=== PATIENT | female | born 1940 | race Caucasian/White ===

== ENCOUNTER 2024-05-08 09:41 | Observation (INO) ==
[2024-05-08 10:46] LABS: ABS Lymphocytes 0.6 10^3/uL (1.0-4.8); ABS Monocytes 0.6 10^3/uL (0.0-0.9); ABS Neutrophils 2.7 10^3/uL (1.5-7.6); Eosinophil % 0.5 %; Hematocrit 35.6 % (35-45); Hemoglobin 12.1 g/dL (11.5-14.3); Lymphocyte % 14.6 %; Mean Corpuscular Hemoglobin 30.7 pg (27-33); Mean Corpuscular Hgb Conc 33.9 g/dL (31-36); Mean Corpuscular Volume 90.5 fL (80-97); Mean Platelet Volume 6.8 fL (7.5-11.2); Nucleated Red Blood Cells % 0.1 %/100WBC (0.0-0.8); Platelet Count 200 10^3/uL (150-450); Red Blood Count 3.93 10^6/uL (3.63-4.92); Red Cell Distribution Width 14.4 % (12-17); White Blood Count 3.9 10^3/uL (3.8-11.8)
[2024-05-08] MEDS: Ondansetron 4 mg VIAL 2 MG/ML 2 ml VIAL IV ONE (11:27)
[2024-05-08 11:34] LABS: Creatinine, Serum 1.91 mg/dL (0.51-0.95); Potassium 4.9 mmol/L (3.5-5.0); eGFR CKD-EPI 25.9 (>60)
[2024-05-08 12:05] LABS: Urine Appearance Clear; Urine Bilirubin Negative (Negative); Urine Blood Negative (Negative); Urine Color Light-Yellow; Urine Glucose Negative (Negative); Urine Ketones Trace (Negative); Urine Nitrite Negative (Negative); Urine Protein Trace (Negative); Urine Specific Gravity 1.014 (1.002-1.030); Urine Urobilinogen Negative (Negative)
[2024-05-08 12:06] LABS: Osmolality Serum 261 mOsm/kg (275-295)
[2024-05-08 13:22] LABS: Urine Osmo 397 mOsm/kg (150-1150)
[2024-05-08] MEDS ORDERED: Ondansetron 4 mg VIAL 2 MG/ML 2 ml VIAL IV PRN (14:34)
[2024-05-08 19:23] LABS: Calcium 9.4 mg/dL (8.6-10.3); Creatinine, Serum 1.67 mg/dL (0.51-0.95); Potassium 4.6 mmol/L (3.5-5.0); eGFR CKD-EPI 30.4 (>60)
[2024-05-08] MEDS: NS 0.9% 1000 ml BAG 1,000 ML IV SCH (20:00)
[2024-05-09 02:46] LABS: ABS Eosinophils 0.1 10^3/uL (0.0-0.5); ABS Lymphocytes 0.8 10^3/uL (1.0-4.8); ABS Monocytes 0.4 10^3/uL (0.0-0.9); ABS Neutrophils 1.9 10^3/uL (1.5-7.6); Eosinophil % 3.3 %; Hematocrit 32.6 % (35-45); Hemoglobin 11.3 g/dL (11.5-14.3); Lymphocyte % 23.8 %; Mean Corpuscular Hemoglobin 31.4 pg (27-33); Mean Corpuscular Hgb Conc 34.7 g/dL (31-36); Mean Corpuscular Volume 90.3 fL (80-97); Mean Platelet Volume 7.1 fL (7.5-11.2); Platelet Count 171 10^3/uL (150-450); Red Cell Distribution Width 14.9 % (12-17); White Blood Count 3.2 10^3/uL (3.8-11.8)
[2024-05-09 02:55] LABS: Calcium 8.9 mg/dL (8.6-10.3); Creatinine, Serum 1.43 mg/dL (0.51-0.95); Magnesium 1.6 mg/dL (1.9-2.7); eGFR CKD-EPI 36.6 (>60)
[2024-05-09] MEDS: Magnesium Sulf 4 GM/100 ML IV 4,000 MG/100 ML BAG IVPB ONE (08:02)
[2024-05-09 10:57] LABS: Calcium 9.4 mg/dL (8.6-10.3); Creatinine, Serum 1.21 mg/dL (0.51-0.95); eGFR CKD-EPI 44.7 (>60)
[2024-05-09] MEDS: NS 0.9% 500 ml BAG 500 ML IV SCH (12:37)
[2024-05-09] MEDS: Enoxaparin 40 MG/0.4 ML SYR SUBCUT SCH (13:21)
[2024-05-09 20:55] LABS: Calcium 8.7 mg/dL (8.6-10.3); Creatinine, Serum 1.11 mg/dL (0.51-0.95); Potassium 4.5 mmol/L (3.5-5.0); eGFR CKD-EPI 49.6 (>60)
[2024-05-09] MEDS: Senna TAB 8.6 mg TAB PO PRN (21:25)
[2024-05-10 07:09] LABS: ABS Eosinophils 0.2 10^3/uL (0.0-0.5); ABS Monocytes 0.4 10^3/uL (0.0-0.9); ABS Neutrophils 1.7 10^3/uL (1.5-7.6); ABS Nucleated RBC 0.01 10^3/ul; Eosinophil % 4.8 %; Hematocrit 34.9 % (35-45); Hemoglobin 12.1 g/dL (11.5-14.3); Lymphocyte % 30.3 %; Mean Corpuscular Hemoglobin 31.5 pg (27-33); Mean Corpuscular Hgb Conc 34.6 g/dL (31-36); Mean Platelet Volume 7.1 fL (7.5-11.2); Nucleated Red Blood Cells % 0.2 %/100WBC (0.0-0.8); Platelet Count 167 10^3/uL (150-450); Red Blood Count 3.83 10^6/uL (3.63-4.92); Red Cell Distribution Width 14.7 % (12-17); White Blood Count 3.3 10^3/uL (3.8-11.8)
[2024-05-10 08:04] LABS: Calcium 9.1 mg/dL (8.6-10.3); Creatinine, Serum 1.04 mg/dL (0.51-0.95); Phosphorus 2.9 mg/dL (2.5-5.0); Potassium 4.7 mmol/L (3.5-5.0); eGFR CKD-EPI 53.7 (>60)
[2024-05-10] MEDS: NS 0.9% 1000 ml BAG 1,000 ML IV ONE (12:45)
[2024-05-10 15:23] LABS: Calcium 8.4 mg/dL (8.6-10.3); Creatinine, Serum 1.1 mg/dL (0.51-0.95); Potassium 4.4 mmol/L (3.5-5.0); eGFR CKD-EPI 50.2 (>60)
[2024-05-10] MEDS: NS 0.9% 1000 ml BAG 0 ML IV SCH (16:04)
[2024-05-10] MEDS: NS 0.9% 1000 ml BAG 1,000 ML IV SCH (21:24)
[2024-05-10 22:50] LABS: Calcium 8.5 mg/dL (8.6-10.3); Creatinine, Serum 0.93 mg/dL (0.51-0.95); Potassium 4.3 mmol/L (3.5-5.0); eGFR CKD-EPI 61.4 (>60)
[2024-05-11 05:51] LABS: ABS Eosinophils 0.1 10^3/uL (0.0-0.5); ABS Lymphocytes 0.9 10^3/uL (1.0-4.8); ABS Monocytes 0.3 10^3/uL (0.0-0.9); ABS Neutrophils 1.3 10^3/uL (1.5-7.6); Hematocrit 26.7 % (35-45); Hemoglobin 9.2 g/dL (11.5-14.3); Mean Corpuscular Hemoglobin 31.2 pg (27-33); Mean Corpuscular Hgb Conc 34.5 g/dL (31-36); Mean Corpuscular Volume 90.4 fL (80-97); Mean Platelet Volume 7.1 fL (7.5-11.2); Nucleated Red Blood Cells % 0.1 %/100WBC (0.0-0.8); Platelet Count 135 10^3/uL (150-450); Red Blood Count 2.96 10^6/uL (3.63-4.92); Red Cell Distribution Width 14.5 % (12-17); White Blood Count 2.6 10^3/uL (3.8-11.8)
[2024-05-11 06:45] LABS: Calcium 7.8 mg/dL (8.6-10.3); Creatinine, Serum 0.8 mg/dL (0.51-0.95); Magnesium 1.5 mg/dL (1.9-2.7); Phosphorus 2.7 mg/dL (2.5-5.0); eGFR CKD-EPI 73.5 (>60)
[2024-05-11] MEDS: Magnesium Sulf 4 GM/100 ML IV 4,000 MG/100 ML BAG IVPB ONE (13:05)
[2024-05-11 14:14] LABS: Hematocrit 28.4 % (35-45); Hemoglobin 9.7 g/dL (11.5-14.3); Mean Corpuscular Hemoglobin 31.2 pg (27-33); Mean Corpuscular Hgb Conc 34.3 g/dL (31-36); Mean Platelet Volume 6.9 fL (7.5-11.2); Platelet Count 142 10^3/uL (150-450); Red Blood Count 3.12 10^6/uL (3.63-4.92); Red Cell Distribution Width 14.9 % (12-17); White Blood Count 3.2 10^3/uL (3.8-11.8)
[2024-05-11 14:37] LABS: Calcium 8.9 mg/dL (8.6-10.3); Creatinine, Serum 0.8 mg/dL (0.51-0.95); eGFR CKD-EPI 73.5 (>60)
[2024-05-11] MEDS: NS 0.9% 1000 ml BAG 1,000 ML IV ONE (16:11)
[2024-05-11 18:58] LABS: Calcium 8.4 mg/dL (8.6-10.3); Creatinine, Serum 0.75 mg/dL (0.51-0.95); Potassium 3.9 mmol/L (3.5-5.0); eGFR CKD-EPI 79.4 (>60)
[2024-05-11] MEDS: NS 0.9% 1000 ml BAG 1,000 ML IV SCH (19:35)
[2024-05-12 05:36] VITALS: BP 177/81
[2024-05-12 06:37] LABS: Hematocrit 28.2 % (35-45); Hemoglobin 9.7 g/dL (11.5-14.3); Mean Corpuscular Hgb Conc 34.4 g/dL (31-36); Mean Corpuscular Volume 90.1 fL (80-97); Mean Platelet Volume 6.9 fL (7.5-11.2); Platelet Count 140 10^3/uL (150-450); Red Blood Count 3.13 10^6/uL (3.63-4.92); Red Cell Distribution Width 14.9 % (12-17); White Blood Count 2.9 10^3/uL (3.8-11.8)
[2024-05-12 07:14] LABS: Calcium 8.4 mg/dL (8.6-10.3); Creatinine, Serum 0.74 mg/dL (0.51-0.95); eGFR CKD-EPI 80.7 (>60)
[2024-05-12 13:55] LABS: Ferritin 78.4 ng/mL (11-307)
== END 2024-05-12 14:15 | disposition home or self-care (01) ==
LOC: ED 09:41 → EDHOLD 09:41 → SUATTDRO 13:55 → MEDTELE 15:19
PROVIDERS: ADMIT Hospitalist; ATTEND Student in an Organized Health Care Education/Training Program